=== PATIENT | female | born 1990 | race African-American/Black ===

== ENCOUNTER 2018-02-16 16:51 | Emergency (ER) | payer OTHER ==
[~2018-02-16] VITALS: Ht 154.9 cm; Wt 90.7 kg
[2018-02-16 19:08] VITALS: BP 105/75
[2018-02-16] MEDS ORDERED: IBUPROFEN 600600 M1 PO (19:08)
== END 2018-02-16 19:15 | disposition home or self-care (01) ==
LOC: ER 16:51
DX: N75.1 Abscess of Bartholin's gland (principal)